=== PATIENT | female | born 1950 | race Caucasian/White ===

== ENCOUNTER 2017-12-26 15:08 | Observation (INO) | payer MEDICARE ==
[2017-12-26 15:59] LABS: ABS Basophils 0.1 10^3/ul (0-0.2); ABS Eosinophils 0.2 10^3/ul (0-0.6); ABS Lymphocytes 1.5 10^3/ul (1.0-4.8); ABS Monocytes 0.7 10^3/ul (0-0.8); ABS Neutrophils 5.8 10^3/ul (1.5-7.7); ABS Nucleated RBC 0 10^3/ul; Eosinophil % 2.6 % (0-6); Hematocrit 45 % (35-47); Hemoglobin 15.4 g/dl (12.0-16.0); Lymphocyte % 18.2 % (25-47); Mean Corpuscular HGB Conc 34 g/dl (31-36); Mean Corpuscular Hemoglobin 30 pg (27-31); Mean Corpuscular Volume 88 fL (80-97); Mean Platelet Volume 7.9 um3 (7.4-10.4); Nucleated Red Blood Cells % 0.1; Platelet Count 260 10^3/ul (150-450); Red Blood Count 5.17 10^6/ul (4.0-5.4); Red Cell Distribution Width 14 % (10.5-15); White Blood Count 8.3 10^3/ul (3.5-10.8)
[2017-12-26 16:24] LABS: INR 0.94 (0.77-1.02)
[2017-12-26] MEDS ORDERED: Aspirin TAB* 325 MG PO ONE (16:26)
[2017-12-26 16:30] LABS: EGFR Non-African American 61.5 (>60)
--- NOTE | 2017-12-26 16:35 | RAD ---
HISTORY: Chest pain COMPARISONS: None VIEWS: 1: frontal portable view of the chest at 4:15 PM FINDINGS: LINES AND TUBES: None. CARDIOMEDIASTINAL SILHOUETTE: The cardiomediastinal silhouette is normal for portable technique. PLEURA: The costophrenic angles are sharp. No pleural abnormalities are noted. LUNG PARENCHYMA: The lungs are clear. ABDOMEN: The upper abdomen is clear. There is no subphrenic gas. BONES AND SOFT TISSUES: No bone or soft tissue abnormalities are noted. IMPRESSION: NO ACTIVE CARDIOPULMONARY DISEASE.
[2017-12-26] MEDS ORDERED: Aspirin 81 mg CHEW TAB* 81 MG TAB.CHEW ONE (17:22)
[2017-12-26] MEDS ORDERED: Aspirin 81 mg CHEW TAB* 81 MG TAB.CHEW PO ONE (17:23)
[2017-12-26] MEDS ORDERED: Iohexol 350* (CONTRAST) 500 ML MDV IV ONE (17:40)
[2017-12-26] MEDS ORDERED: Acetaminophen TAB* 325 MG PO PRN (18:02)
[2017-12-26] MEDS ORDERED: Al Hydrox/Mg Hydrox/Simet LIQ* 30 ML UDC PO PRN (18:02)
--- NOTE | 2017-12-26 18:15 | RAD ---
HISTORY: Chest pain, pulmonary embolism COMPARISONS: None TECHNIQUE: Multiple contiguous axial CT scans of the chest were obtained after the administration of nonionic intravenous contrast, timed to the pulmonary arterial phase of contrast enhancement.. Coronal and sagittal multiplanar reformations are also submitted for review. FINDINGS: NECK AND THYROID: The lower neck and thyroid are unremarkable. CHEST WALL: There is no lower cervical, axillary, or supraclavicular lymphadenopathy by size criteria. HEART AND PERICARDIUM: The heart is unremarkable. AORTA AND PULMONARY VASCULATURE: There is no pulmonary arterial filling defect to suggest pulmonary embolism. There is no linear filling defect within the aorta to suggest aortic dissection. MEDIASTINUM: There is no mediastinal lymphadenopathy by size criteria. RENITA: There is no hilar lymphadenopathy by size criteria. AIRWAY AND ESOPHAGUS: The airway is unremarkable, without endobronchial filling defect. The esophagus is grossly normal. LUNG PARENCHYMA: There is a 0.5 cm nodule of the left lower lobe on axial image 35. There is a 0.8 standard nodule of the right lower lobe on axial image 42. PLEURA: No pleural abnormalities are noted. UPPER ABDOMEN: The upper abdomen is unremarkable. BONES AND SOFT TISSUES: Mild degenerative changes are noted. OTHER: None. IMPRESSION: 1. NO PULMONARY ARTERIAL FILLING DEFECT TO SUGGEST PULMONARY EMBOLISM. 2. THERE ARE PULMONARY PARENCHYMAL NODULES MEASURING UP TO 0.8 CM IN SIZE. THE RECOMMENDATIONS FOR FOLLOWUP AND MANAGEMENT OF AN INCIDENTALLY DETECTED PULMONARY NODULE GREATER THAN OR EQUAL TO 6 MM BUT LESS THAN OR EQUAL TO 8 MM IN SIZE, IN A PATIENT WITHOUT A HISTORY OF MALIGNANCY, INCLUDE FOLLOWUP CT IN 6-12 MONTHS, THEN CONSIDER AGAIN AT 18-24 MONTHS FOR A LOW-RISK PATIENT OR FOLLOWUP CT IN 6-12 MONTHS, THEN AGAIN AT 18-24 MONTHS FOR A HIGH RISK PATIENT. NOTES: SIZE = AVERAGE LENGTH AND WIDTH; HIGH RISK IS DEFINED A HISTORY OF SMOKING OR OTHER KNOW RISK FACTORS FOR LUNG CANCER; LOW RISK IS DEFINED MINIMAL OR ABSENT HISTORY OF SMOKING OR OTHER KNOWN RISK FACTORS. Jg Fenton, JEN Phelps, RAMÍREZ Anderson, et al (2017) "Guidelines for Management of Incidental Pulmonary Nodules Detected on CT Images: From the Fleischner Society 2017." Radiology; 284(1): 228-243. doi:10.1148/radiol.5879171626 .
--- NOTE | 2017-12-26 18:19 | ED ---
[facility] T[facility], scribed for Shadi Maldnoado on 12/26/17 at 1631 . HPI Chest Pain - HPI Summary HPI Summary: 67 y/o F presenting to [facility] complains of chest pain that began yesterday upon rest and resolved this morning. Reports that pain began under left breast and shot up to left shoulder. Symptoms aggravated and alleviated by nothing. Denies nausea, vomiting, dizziness, shortness of breath, leg pain, bilateral leg edema. Denies hx cardiac disease. - History of Current Complaint Chief Complaint: EDChestWallPain Time Seen by Provider: 12/26/17 16:17 Hx Obtained From: Patient Onset/Duration: Started Days Ago - 1 day ago, Resolved - THis morning Aggravating Factor(s): Nothing Alleviating Factor(s): Nothing Associated Signs and Symptoms: Positive: Negative - ausea, vomiting, dizziness, shortness of breath, leg pain, bilateral leg edema - Allergy/Home Medications Allergies/Adverse Reactions: Allergies Allergy/AdvReac Type Severity Reaction Status Date / Time Penicillins Allergy Hives Verified 12/26/17 15:14 Home Medications: Home Medications Ascorbic Acid TAB* [Vitamin C TAB*] 1,000 mg PO DAILY 12/26/17 [History Confirmed 12/26/17] Atorvastatin* [Lipitor*] 20 mg PO DAILY 12/26/17 [History Confirmed 12/26/17] Cholecalciferol TAB* [Vitamin D TAB*] 1,000 unit PO DAILY 12/26/17 [History Confirmed 12/26/17] FLUoxetine CAP* [PROzac CAP*] 20 mg PO DAILY 12/26/17 [History Confirmed ] Glucosamine CAP (NF) 1 cap PO BID 12/26/17 [History Confirmed 12/26/17] Multivitamins/Minerals TAB* [Theragran/minerals TAB*] 1 tab PO DAILY 12/26/17 [ History Confirmed 12/26/17] Omeprazole CAP* [Prilosec CAP* 20 MG] 40 mg PO DAILY 12/26/17 [History Confirmed 12/26/17] Solifenacin(NF) [Vesicare(NF)] 5 mg PO DAILY 12/26/17 [History Confirmed ] celeCOXIB CAP* [CeleBREX CAP*] 200 mg PO DAILY 12/26/17 [History Confirmed 12/26] PMH/Surg Hx/FS Hx/Imm Hx Previously Healthy: No Endocrine/Hematology History: Denies: Hx Diabetes Cardiovascular History: Denies: Hx Congenital Heart Disease, Hx Congestive Heart Failure, Hx Coronary Artery Disease, Hx Myocardial Infarction Sensory History: Denies: Hx Legally Blind, Hx Deafness EENT History: Denies: Hx Deafness Psychiatric History: Denies: Hx Panic Disorder - Surgical History Surgery Procedure, Year, and Place: Appendectomy, partial hysterectomy, breast reduction, foot surgery Infectious Disease History: No Infectious Disease History: Denies: Traveled Outside the [place] in Last 30 Days - Family History Known Family History: Negative: Cardiac Disease - Social History Hx Substance Use: No Substance Use Type: Reports: None Hx Tobacco Use: Yes - Quit in 2003 Smoking Status (MU): Former Smoker Review of Systems Positive: Chest Pain - that began yesterday, since resolved Negative: Shortness Of Breath Negative: Vomiting, Nausea Musculoskeletal: Negative - Leg pain Negative: Edema - bilateral leg Neurological: Negative - Dizziness All Other Systems Reviewed And Are Negative: Yes Physical Exam - Summary Physical Exam Summary: Appearance: Well appearing, no pain distress Skin: warm, dry, reflects adequate perfusion Head/face: normal Eyes: EOMI, CELE ENT: normal Neck: supple, non-tender Respiratory: CTA, breath sounds present Cardiovascular: RRR, pulses symmetrical Abdomen: non-tender, soft Bowel: present Musculoskeletal: normal, strength/ROM intact Neuro: normal, sensory motor intact, A&Ox3 Triage Information Reviewed: Yes Vital Signs On Initial Exam: Initial Vitals Temp Pulse Resp BP Pulse Ox 98.5 F 85 16 142/113 99 12/26/17 15:11 12/26/17 15:11 12/26/17 15:11 12/26/17 15:11 12/26/17 15:11 Vital Signs Reviewed: Yes Diagnostics - Vital Signs Vital Signs Temp Pulse Resp BP Pulse Ox 12/26/17 15:11 98.5 F 85 16 142/113 99 - Laboratory Lab Results: Lab Results 12/26/17 12/26/17 12/26/17 Range/Units 15:47 15:47 15:47 WBC 8.3 (3.5-10.8) 10^3/ul RBC 5.17 (4.0-5.4) 10^6/ul Hgb 15.4 (12.0-16.0) g/dl Hct 45 (35-47) % MCV 88 (80-97) fL MCH 30 (27-31) pg MCHC 34 (31-36) g/dl RDW 14 (10.5-15) % Plt Count 260 (150-450) 10^3/ul MPV 7.9 (7.4-10.4) um3 Neut % (Auto) 69.8 (38-83) % Lymph % (Auto) 18.2 L (25-47) % Cochran % (Auto) 8.4 H (0-7) % Eos % (Auto) 2.6 (0-6) % Baso % (Auto) 1.0 (0-2) % Absolute Neuts (auto) 5.8 (1.5-7.7) 10^3/ul Absolute Lymphs (auto) 1.5 (1.0-4.8) 10^3/ul Absolute Monos (auto) 0.7 (0-0.8) 10^3/ul Absolute Eos (auto) 0.2 (0-0.6) 10^3/ul Absolute Basos (auto) 0.1 (0-0.2) 10^3/ul Absolute Nucleated RBC 0 10^3/ul Nucleated RBC % 0.1 INR (Anticoag Therapy) 0.94 (0.77-1.02) Lactic Acid 1.0 (0.5-2.0) mmol/L Result Diagrams: 12/26/17 15:47 12/26/17 15:47 Lab Statement: Any lab studies that have been ordered have been reviewed, and results considered in the medical decision making process. - Radiology CXR Radiology Interpretation Completed By: Radiologist - NO ACTIVE CARDIOPULMONARY DISEASE. ED physician has reviewed this report. - EKG 15:15 Cardiac Rate: NL - 72 BPM EKG Rhythm: Sinus Rhythm EKG Interpretation: qs in inf leads with non specific st/t changes Re-Evaluation - Re-Evaluation First Eval Re-Evaluation Time: 17:26 Change: Unchanged Comment: Discussed admission plan, agreeable. Chest Pain Course/Dx - Course Course Of Treatment: 67 y/o F presenting to [facility] complains of chest pain that began yesterday upon rest and resolved this morning. Bloodwork/imaging obtained. Dr. Vizcarra, hospitalist, agrees to admit patient for further evaluation. - Chest Pain Differential Diagnosis/HQI/PQRI: Acute KS, ACS, Angina, Chest Wall, Lower Respiratory Infection, Pulmonary Embolism - Diagnoses Provider Diagnoses: Chest pain, Ruled out for myocardial infarction - Provider Notifications Discussed Care Of Patient With: Ya Vizcarra Time Discussed With Above Provider: 17:32 Instructed by Provider To: Other - Dr. Vizcarra, hospitalist, agrees to admit patient for further evaluation. Discharge - Sign-Out/Discharge Documenting (check all that apply): Discharge/Admit/Transfer - Discharge Plan Condition: Stable Disposition: ADMITTED TO [facility] Referrals: No Primary Care Phys,NOPCP [Primary Care Provider] - - Billing Disposition and Condition Condition: STABLE [place] [place] The documentation as recorded by the [facility] accurately reflects the service I personally performed and the decisions made by Joel mccauley Emmanuel.
[2017-12-26] MEDS: Omeprazole CAP* 20 MG PO SCH (20:55)
[2017-12-26] MEDS: Heparin VIAL(*) 5000 UNITS/ML VIAL (FIVE THOUSAND) SUBCUT SCH (20:56)
--- NOTE | 2017-12-27 02:21 | HP ---
HISTORY AND PHYSICAL: DATE OF ADMISSION: 12/26/17 PRIMARY CARE PROVIDER: None locally. CHIEF COMPLAINT: Chest pain. HISTORY OF PRESENT ILLNESS: Meryl Dodson is a 67-year-old female with history of obesity, dyslipidemia, gastroesophageal reflux disease, who presents complaining of epigastric pain whenever she eats. The epigastric pain started when she ate at [employer] yesterday. It felt like a pressure in her epigastrium , associated with no shortness of breath and once it radiated to her left shoulder. Today, mid-day the pain resolved, but she came in to the ER to be "checked out." Here, her EKG shows some nonspecific changes. Otherwise, her workup was unremarkable. She is going to be placed overnight observation and stress test in the morning. PAST MEDICAL HISTORY: 1. Dyslipidemia. 2. History of gastroesophageal reflux disease. 3. History of negative cardiac stress test "many years ago." 4. History of partial hysterectomy. 5. Bunionectomy. 6. Appendectomy. 7. Breast reduction. 8. History of lumpectomy for benign lesions in the past. 9. History of diverticular bleed in 2003 and required multiple transfusions. 10. The patient has a history in the past diagnosis of benign pulmonary nodules. CURRENT MEDICATIONS: Includes: 1. VESIcare 5 mg daily. 2. Omeprazole 40 mg daily. 3. Multivitamins 1 tablet daily. 4. Vitamin C 1000 mg daily. 5. Glycosamine 1 capsule b.i.d. 6. Vitamin D3 1000 units daily. 7. Celebrex 200 mg daily. 8. Fluoxetine 20 mg daily. 9. Lipitor 20 mg daily. ALLERGIES: PENICILLIN causes hives. FAMILY HISTORY: Father was paralysed at the age of 27 due to Guillain-Cresson syndrome. He at the age of 52 secondary to stroke. Mother at the age of 88 due to "old age." SOCIAL HISTORY: The patient is single. Denies any alcohol, tobacco, or drug use. She just drove here from [place] 4 days ago. Her person of contact here in [place] is her friend, Salomon Marshall. She was not able to name a surrogate. REVIEW OF SYSTEMS: Please see history of present illness. All the 12 remaining review of systems were completed and were otherwise negative. PHYSICAL EXAMINATION GENERAL: The patient is a very pleasant 67-year-old female, who is in no acute distress. Alert, awake, and oriented x3 with a BMI of 42. VITAL SIGNS: Blood pressure of 170/97, heart rate of 81 and regular, respiratory rate 21, oxygen saturation 95% on room air, temperature of 98.5. HEENT: Head: Atraumatic, normocephalic. Eyes: Pupils are equal, reactive to light and accommodation. Oropharynx clear. Mucosa moist. NECK: Supple. No JVD. No bruits bilaterally. RESPIRATORY: Clear to auscultation bilaterally. CARDIOVASCULAR: Regular rate and rhythm. No murmur. ABDOMEN: Soft, nontender. Bowel sounds are present in all 4 quadrants. EXTREMITIES: No edema. Pulses are +2 bilaterally. No clubbing or cyanosis. NEURO EVALUATION: Speech is clear. Cranial nerves II through XII are grossly intact. Motor strength is 5/5 bilaterally. PSYCHIATRIC EVALUATION: Oriented x3 with no evidence of anxiety or depression. SKIN: On evaluation of the skin, dill with no lesions appreciated. LABORATORY DATA: White blood cell count of 8.3, hemoglobin of 15.4, hematocrit of 45, and platelets of 260. Sodium was 138, potassium of 4.3, chloride 105, carbon dioxide 27, BUN 19, creatinine 0.9. Liver function tests were unremarkable. Troponin of 0. The patient's EKG showed normal sinus rhythm with a heart rate of 72 beats per minute with negative T-waves in leads V1 and V2 as well as Q-waves in leads III and aVF. There was no old EKG available for comparison. CT angiogram of the chest showed no PE, but 2 pulmonary nodules, one 5 mm localized in the left lower lobe and 8 mm in the right lower lobe. As per the patient, those nodules are known to her and had been followed at [place]. ASSESSMENT AND PLAN: 1. Chest pain. It appears to be more indigestion related. It occurred after she ate at [employer] and lasted for several hours with worsening whenever she would eat. Right now, she is pain free. She is going to be placed on overnight observation and stress test in the morning as recommended by the ED physician. The patient is going to be placed on baby aspirin on a daily basis. 2. In regards to the patient's dyslipidemia, Lipitor is going to be continued. Fasting lipid profile is going to be obtained in the morning. 3. For DVT prophylaxis, the patient will be placed on heparin subcutaneously. 4. The patient has a history of known pulmonary nodules and CT showed nodules of size that the patient remembers that may be very similar to what she was known to have before. 5. The patient's code status is full. Her surrogate is not named during this hospital stay. TIME SPENT: Approximately 62 minutes were spent on the patient's admission, more than half of that time was spent in [id number] with the patient during the interview and physical exam. [id number]/[facility] #: [id number] HILDA
[2017-12-27] MEDS: Heparin VIAL(*) 5000 UNITS/ML VIAL (FIVE THOUSAND) SUBCUT SCH ×2 (05:39→14:09)
[2017-12-27] MEDS ORDERED: FLUoxetine CAP* 20 MG PO SCH (09:00)
[2017-12-27] MEDS ORDERED: Atorvastatin* 20 MG TAB PO SCH (09:00)
[2017-12-27] MEDS ORDERED: Regadenoson* 0.4 MG/5 ML SYRINGE ONE (09:41)
--- NOTE | 2017-12-27 11:14 | RAD ---
Edited for charges. INDICATION: Chest pain COMPARISON: None TECHNIQUE: A single day SPECT protocol was utilized. Rest images were acquired following the intravenous injection of 10.7 millicuries of technetium 99m tetrofosmin. Pharmacologic stress images were acquired following the intravenous administration of 25.4 millicuries of technetium 99m tetrofosmin. FINDINGS: There are no defects of the stress-induced or fixed nature. The cardiac chamber size is normal. There are no wall motion abnormalities. The ejection fraction is calculated at 67 percent during stress. IMPRESSION: NO DEFECTS OR STRESS-INDUCED OR FIXED NATURE ASSESSMENT: LOW-RISK Based on imaging criteria from ACC/AHA 2002 Guideline Update for the Management of Patients With Chronic Stable Angina Table 23. Noninvasive Risk Stratification. Reference. HIGH-RISK (GREATER THAN 3% ANNUAL MORTALITY RATE) - Severe resting left ventricular dysfunction (LVEF < 35%) - Severe exercise left ventricular dysfunction (exercise LVEF < 35%) - Stress-induced large perfusion defect (particularly if anterior) - Stress-induced multiple perfusion defects of moderate size - Large, fixed perfusion defect with LV dilation or increased lung uptake ( thallium-201) - Stress-induced moderate perfusion defect with LV dilation or increased lung uptake (thallium-201) INTERMEDIATE-RISK (1%-3% ANNUAL MORTALITY RATE) - Mild/moderate resting left ventricular dysfunction (LVEF = 35% to 49%) - Stress-induced moderate perfusion defect without LV dilation or increased lung intake (thallium-201) LOW-RISK (LESS THAN 1% ANNUAL MORTALITY RATE) - Normal or small myocardial perfusion defect at rest or with stress MTDD
[2017-12-27] MEDS: Omeprazole CAP* 20 MG PO SCH (11:40)
[2017-12-27 12:47] VITALS: BP 130/73
--- NOTE | 2017-12-28 10:16 | DS ---
DISCHARGE SUMMARY: DATE OF ADMISSION: 12/26/17 DATE OF DISCHARGE: 12/27/17 PRIMARY CARE PROVIDER: Is in [place]. DISCHARGE DIAGNOSIS: Chest pain, likely gastrointestinal related with cardiac stress test with low probability. SECONDARY DIAGNOSES: 1. Dyslipidemia. 2. History of gastroesophageal reflux disease. 3. History of partial hysterectomy. 4. Bunionectomy. 5. Appendectomy. 6. Breast reduction. 7. History of lumpectomy for benign lesions. 8. History of diverticular bleeding in 2003. 9. History of benign pulmonary nodules. MEDICATIONS AT DISCHARGE: Are unchanged from admission and include: 1. Vitamin C 1000 mg daily. 2. Lipitor 20 mg daily. 3. Celebrex 200 mg daily. 4. Vitamin D 1000 units daily. 5. Prozac 20 mg daily. 6. Glucosamine 1 capsule b.i.d. 7. Multivitamin 1 tablet daily. 8. Prilosec 40 mg daily. 9. VESIcare 5 mg daily. LABORATORY DATA AND STUDIES PERFORMED DURING HOSPITAL STAY: The patient's lipid profile showed triglycerides of 194, cholesterol total of 172, LDL of 86 , and HDL of 47. The patient's troponins were negative throughout her hospital stay. CT angiogram of the chest obtained on 12/26/17. Impression: "No pulmonary arterial filling defects to suggest pulmonary embolism. There are pulmonary parenchymal nodules measuring up to 0.8 cm in size. The recommendation is for followup and management of incidentally detected pulmonary nodule that is greater than or equal to 6 mm but less than or equal to 8 mm in size in a patient without history of malignancy include followup in 6 to 12 months and consider again at 18 to 24 months for a low-risk patient, or followup in 6 to 12 months, then again at 18 to 24 months for a high-risk patient." The patient's cardiac stress test, the nuclear portion of that was read by the radiologist as "no defects of stress induced or fixed nature. Low risk." HOSPITALIZATION COURSE: Meryl Dodson is 67-year-old female who just arrived to [place] from [place] several days prior to an onset of epigastric/chest pain. She stated that it started after she ate in [employer] and was going on for approximately 24 hours and was worsening every time she ate. By the time, she presented to the ED for evaluation, the chest pain/epigastric pain resolved. Her workup included negative troponins and EKG with what appeared chronic changes but no acute ST changes that were noted. At that time, the patient was observed overnight and a treadmill stress test was performed on the day of discharge and was unremarkable as mentioned above. At this point, the differential of the patient's pain is either gastritis or possibility of gallbladder disease. Having said that, her liver function tests were unremarkable at admission. The patient's pain also resolved. I advised to the patient if the pain recurs, to have her gallbladder further evaluated for possibility of symptomatic cholelithiasis. The patient also was advised to abstain from large fat meals. PHYSICAL EXAM AT THE TIME OF DISCHARGE: Unchanged from admission. [id number]/[facility] #: [id number] HILDA
== END 2017-12-27 14:39 | disposition home or self-care (01) ==
LOC: ED 15:08 → MEDTELE 18:41
PROVIDERS: ADMIT Internal Medicine; ATTEND Internal Medicine
DX: R07.9 Chest pain, unspecified (principal); E78.5 Hyperlipidemia, unspecified; K21.9 Gastro-esophageal reflux disease without esophagitis; Z79.899 Other long term (current) drug therapy; Z88.0 Allergy status to penicillin; R94.31 Abnormal electrocardiogram [ECG] [EKG]
CPT/HCPCS: 36415; 71045; 71275; 78452; 80053; 80061; 82550; 82553; 83605; 83735; 83874; 84484; 85025; 85610; 93005; 93017; 96372; 99283; A9270-GY; A9502; G0378; J1644; J2785; Q9967